=== PATIENT | male | born 1960 | race Caucasian/White ===

== ENCOUNTER 2016-11-04 22:48 | Emergency (ER) | payer OTHER ==
[~2016-11-04] VITALS: Ht 175.3 cm; Wt 88.5 kg
[2016-11-04 23:12] VITALS: BP 139/90
--- NOTE | 2016-11-04 23:32 | ED GI/GU/ABDOMINAL COMPLAINT ---
History of Present Illness General Chief Complaint: General Adult Stated Complaint: PT STOMACH,CRAMP,SWEATING,NAUSEA, Source: patient, family, old records Exam Limitations: no limitations Vital Signs & Intake/Output Vital Signs & Intake/Output Vital Signs Date Time Temp Pulse Resp B/P B/P Pulse O2 O2 Flow FiO2 Mean Ox Delivery Rate 11/04 2312 96.7 71 16 139/90 96 Room Air ED Intake and Output 11/05 0000 11/04 1200 Intake Total Output Total Balance Patient 195 lb Weight Weight Reported by Patient Measurement Method Allergies Coded Allergies: No Known Allergies (11/04/16) Reconcile Medications Ondansetron (Zofran Odt) 4 MG TAB.RAPDIS 1 TAB SL TID PRN NAUSEA Triage Note: TRIAGE: ATE DINNER TODAY AND STARTED NOT FEELING RIGHT AFTERWARDS. ENDORSES EPIGASTRIC PAIN, BUT PAIN BELOW UMBILICUS EARLIER, CRAMPING IN NATURE. WORSE WITH PALPATION. VOMITING PRIOR TO ARRIVAL, NONE SINCE ARRIVAL. C/O WEAKNESS, FATIGUE, DIAPHORESIS. REPORTS DURING SEVERE CRAMPING HE EXPERIENCES SOB, TAKING SHALLOW BREATHS IN TRIAGE. DENIES CHEST PAIN. TEMP 96.7 IN TRIAGE. LAST BM 30 MINS AGO AND NORMAL Triage Nurses Notes Reviewed? yes HPI: Patient got home from work and had chills. Patient also felt slightly nauseous. Patient states he drank half a beer and a glass wine with dinner and then he developed crampy abdominal pain associated with nausea and vomiting. The cramping abdominal pain started off in the right and left lower quadrants but then migrated up to the right upper quadrant. The pain has been constant. There is no radiation however the pain did move. He rates the pain at 3 out of 10. There is no diarrhea or constipation. There is no bloating. He continues to have chills however he states that he got into shower and that helped him feel better. He denies any fevers. His ate the same dinner as he did and she feels fine. Past History Travel History Traveled to [place] past 21 day No Medical History Any Pertinent Medical History? see below for history Neurological: NONE EENT: NONE Cardiovascular: hypertension Respiratory: NONE Gastrointestinal: NONE Hepatic: NONE Renal: NONE Musculoskeletal: NONE Psychiatric: NONE Endocrine: NONE Blood Disorders: NONE Cancer(s): NONE Surgical History Surgical History: non-contributory Psychosocial History What is your primary language Turkmen Tobacco Use: Never used ETOH Use: occasional use Illicit Drug Use: denies illicit drug use Family History Hx Contributory? No Review of Systems Review of Systems Constitutional: Reports: see HPI, chills. EENTM: Reports: no symptoms. Respiratory: Reports: no symptoms. Cardiovascular: Reports: no symptoms. GI: Reports: see HPI, abdominal pain, nausea, vomiting. Genitourinary: Reports: no symptoms. Musculoskeletal: Reports: no symptoms. Skin: Reports: no symptoms. Neurological/Psychological: Reports: no symptoms. Hematologic/Endocrine: Reports: no symptoms. Immunologic/Allergic: Reports: no symptoms. All Other Systems: Reviewed and Negative Physical Exam Physical Exam General Appearance: well developed/nourished, alert, awake, anxious, mild distress Head: atraumatic, normal appearance Eyes: Bilateral: PERRL, EOMI, other (ANICTERIC). Ears, Nose, Throat, Mouth: hearing grossly normal, DRY MUCOSA Neck: normal inspection, supple, full range of motion, NO JVD Respiratory: normal breath sounds, chest non-tender, no respiratory distress, lungs clear Cardiovascular: regular rate/rhythm, normal peripheral pulses Gastrointestinal: normal bowel sounds, soft, no organomegaly, tenderness (RUQ), NO REBOUND OR GUARDING Back: normal inspection, normal range of motion, NO CVA TENDERNESS Extremities: normal range of motion Neurologic/Psych: no motor/sensory deficits, awake, alert, oriented x 3, normal gait, normal mood/affect Skin: intact, normal color, warm/dry Core Measures ACS in differential dx? Yes ASA ordered for poss ACS? No-ACS ruled out Severe Sepsis Present: No Septic Shock Present: No Progress Differential Diagnosis: AMI, appendicitis, biliary colic, cholecystitis, gastritis, hepatitis, ischemic bowel, inflamm bowel dis, pancreatitis, PUD/GERD, perforated viscous Plan of Care: Orders Procedure Date/time Status CT ABD & PELVIS W IV CONTRAST 11/05 0025 Active TROPONIN LEVEL 11/04 2331 Complete LIPASE 11/04 2331 Complete COMPREHENSIVE METABOLIC PANEL 11/04 2331 Complete CBC WITHOUT DIFFERENTIAL 11/041 Complete AMYLASE 11/041 Complete EKG 11/04 2331 Active Laboratory Tests 11/04/16 2349: Anion Gap 9, Estimated GFR > 60, BUN/Creatinine Ratio 22.0, Glucose 129 H, Calcium 9.8, Total Bilirubin 0.6, AST 36, ALT 55, Alkaline Phosphatase 75, Troponin I < 0.01, Total Protein 7.3, Albumin 4.6, Globulin 2.7, Albumin/ Globulin Ratio 1.7, Amylase 45, Lipase 37, CBC w Diff MAN DIFF ORDERED, RBC 4.90 , MCV 91.1, MCH 31.5 H, RDW 12.2, MPV 9.4, Gran % 90.3 H, Lymphocytes % 4.4 L , Monocytes % 4.6, Eosinophils % 0.3, Basophils % 0.4, Absolute Granulocytes 11.4 H, Segmented Neutrophils 89 H, Band Neutrophils 4, Absolute Lymphocytes 0.6 L, Lymphocytes 4 L, Monocytes 3, Absolute Monocytes 0.6, Absolute Eosinophils 0, Absolute Basophils 0, Platelet Estimate ADEQUATE, Normochromic RBCs VERIFIED, Ovalocytes FEW, Stomatocytes FEW, PUBS MCHC 34.5, Fld Total RBCs Counted 100 Initial ED EKG: NSR, no ST T wave changes Comments: Discussed laboratory results with the patient and his . Patient is pain- free after IV fluids and IV Zofran. On reexamination he has no right upper or right lower quadrant tenderness. There is no rebound or guarding. There is no for nausea. Discussed with the patient that his CAT scan and troponin were normal. Patient and his were advised that I cannot rule out that he did not have a small heart attack and that we would need to repeat the troponin and a few hours. Patient states he was hiking at least once weekly and plays soccer twice a week and has never had any chest pain or shortness of breath during any of these workouts so he feels that it is not his heart and he does not want to stay. Patient promises to return if any symptoms worsen. Departure Departure Disposition: HOME OR SELF CARE Condition: Stable Clinical Impression Primary Impression: Upper abdominal pain, unspecified Secondary Impressions: Vomiting Qualifiers: Vomiting type: unspecified Vomiting Intractability: non-intractable Nausea presence: with nausea Qualified Code: R11.2 - Nausea with vomiting, unspecified Referrals: JUDAH LOMELI,NEAL Gillespie (PCP/Family) Additional Instructions: RETURN IF SYMPTOMS WORSEN OR FOR ANY CONCERNS Departure Forms: Customer Survey General Discharge Information Prescriptions: Current Visit Scripts Ondansetron (Zofran Odt) 1 TAB SL TID PRN NAUSEA #10 TAB
[2016-11-04 23:56] LABS: ABSOLUTE BASOPHIL COUNT 0 /CUMM (0.0-0.2); ABSOLUTE EOSINOPHIL COUNT 0 /CUMM (0.0-0.7); ABSOLUTE GRANULOCYTE CT 11.4 /CUMM (1.4-6.5); ABSOLUTE LYMPH COUNT 0.6 /CUMM (1.2-3.4); ABSOLUTE MONOCYTE COUNT 0.6 /CUMM (0.10-0.60); BASOPHIL % 0.4 % (0.0-2.0); EOSINOPHIL % 0.3 % (0-5); GRANULOCYTE % 90.3 % (42.2-75.2); HEMATOCRIT 44.6 % (42-52); MEAN CORPUSCULAR HGB 31.5 PG (27.0-31.0); MEAN CORPUSCULAR HGB CONC 34.5 G/DL (33.0-37.0); MEAN CORPUSCULAR VOLUME 91.1 FL (80.0-94.0); MEAN PLATELET VOLUME 9.4 FL (7.4-10.4); PLATELET COUNT 156 /CUMM (130-400); RBC DISTRIBUTION WIDTH 12.2 % (11.5-14.5); WHITE BLOOD CELL COUNT 12.6 /CUMM (4.8-10.8)
[2016-11-05] MEDS ORDERED: ZOFRAN ODT4 M1 SL (00:44)
== END 2016-11-05 01:25 ==
LOC: ERH 22:48
PROVIDERS: Emergency Medicine
DX: R10.11 Right upper quadrant pain (principal); R11.2 Nausea with vomiting, unspecified
CPT/HCPCS: 93005; 93010; 96361; 96374; J2405